=== PATIENT | female | born 1985 | race Caucasian/White ===

== ENCOUNTER 2018-10-10 16:11 | Emergency (ER) | payer SELFPAY ==
[2018-10-10 16:27] VITALS: BP 188/116; PULSE 98; O2SAT 100
[2018-10-10] MEDS ORDERED: DELTASONE 20 MG PO ONE (16:36)
[2018-10-10] MEDS ORDERED: DELTASONE 20 MG ONE (16:40)
--- NOTE | 2018-10-10 16:41 | ERPHSYRPT ---
- History of Present Illness Time Seen by Provider: 10/10/18 16:30 Source: patient Exam Limitations: clinical condition Patient Subjective Stated Complaint: pt here for rash to arms, back and legs since yesterday, she was exposed to posion thaddeus Triage Nursing Assessment: pt alert, walke in, resp easy. skin w/d/p with rash to aarms, legs, and back Physician History: PATIENT EXPOSED TO POISON THADDEUS YESTERDAY HAS GENERALIZED RASH AND ITCHING SINCE YESTERDAY. DENIES DIFFICULTY BREATHING OR SWALLOWING. Timing/Duration: yesterday Quality: burning, itchy Severity: moderate Location: generalized Possible Causes: poison thaddeus Associated Symptoms: denies symptoms Allergies/Adverse Reactions: amoxicillin Allergy (Verified 10/10/18 16:28) Penicillins Allergy (Verified 10/10/18 16:28) Home Medications: Levothyroxine Sodium 100 Mcg [Synthroid 100 Mcg] 100 mcg DAILY 10/10/18 [ History] Hx Influenza Vaccination/Date Given: Yes Hx Pneumococcal Vaccination/Date Given: No Immunizations Up to Date: Yes - Review of Systems Constitutional: No Fever, No Chills Eyes: No Symptoms Ears, Nose, & Throat: No Symptoms Respiratory: No Symptoms, No Cough, No Dyspnea Cardiac: No Symptoms, No Chest Pain, No Edema, No Syncope Abdominal/Gastrointestinal: No Symptoms, No Abdominal Pain, No Nausea, No Vomiting, No Diarrhea Genitourinary Symptoms: No Symptoms, No Dysuria Musculoskeletal: No Symptoms, No Back Pain, No Neck Pain Skin: Rash, Skin Lesions Neurological: No Dizziness, No Focal Weakness, No Sensory Changes Psychological: No Symptoms Endocrine: No Symptoms All Other Systems: Reviewed and Negative - Past Medical History Pertinent Past Medical History: Yes Endocrine Medical History: Hypothyroidism - Past Surgical History Past Surgical History: Yes Female Surgical History: Section, Tubal Ligation - Social History Smoking Status: Current every day smoker Exposure to second hand smoke: Yes Drug Use: none Patient Lives Alone: No - Female History Hx Last Menstrual Period: week ago Hx Now: No - Nursing Vital Signs Nursing Vital Signs: Initial Vital Signs Temperature 98 F 10/10/18 16:20 Pulse Rate 98 H 10/10/18 16:20 Respiratory Rate 18 10/10/18 16:20 Blood Pressure 188/116 10/10/18 16:20 O2 Sat by Pulse Oximetry 100 10/10/18 16:20 Pain Scale Pain Intensity 0 - Physical Exam General Appearance: mild distress Eye Exam: PERRL/EOMI Ears, Nose, Throat Exam: normal ENT inspection Neck Exam: normal inspection Respiratory Exam: normal breath sounds Cardiovascular Exam: regular rate/rhythm, normal heart sounds Gastrointestinal/Abdomen Exam: soft, normal bowel sounds Back Exam: normal inspection Extremity Exam: normal inspection, normal range of motion Neurologic Exam: alert, oriented x 3, cooperative, signs cleaner II-XII nml as tested Skin Exam: other (GENERALIZED ERYTHEMATOUS PATCHY VESICULAR LESIONS OVER EXTREMITITS CHEST ABDOMEN AND BACK) SpO2 Interpretation: normal SpO2: 100 Ordered Tests: Medication Summary Discontinued Medications Generic Name Dose Route Start Last Admin Trade Name Freq PRN Reason Stop Dose Admin Prednisone 60 mg 10/10/18 16:36 10/10/18 16:40 Deltasone 20 Mg PO 10/10/18 16:37 60 mg STAT ONE Administration Prednisone Confirm 10/10/18 16:40 Deltasone 20 Mg Administered 10/10/18 16:41 Dose 60 mg .ROUTE .STK-MED ONE - Progress Progress Note: 10/10/18 16:43 ORAL PREDNISONE 60MG, UNABLE TO GIVE IM BENADRYL 50MG, 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 Counseled pt/family regarding: diagnosis, need for follow-up - Departure Departure Disposition: Home Clinical Impression: CONTACT DERMATITIS Condition: Stable Critical Care Time: No Referrals: GERRI SIMON Jr., MD [Primary Care Provider] - Additional Instructions: TAKE OVER THE COUNTR BENADRYL 50MG EVERY 4 HOURS NEEDED FOR ITCHING. PREDNISONE 20MG, 2 TABLETS DAILY FOR 4 Days. APPLY OVER THE COUNTER HYDROCORTISONE CREAM TWICE DAILY FOR 1 WEEK. RETURN Prescriptions: Prednisone 20 mg [Deltasone 20 mg] 2 tab PO DAILY #8 tablet
== END 2018-10-10 17:17 | disposition home or self-care (01) ==
LOC: ED 16:11
DX: L25.9 Unspecified contact dermatitis, unspecified cause (principal)
CPT/HCPCS: 99283; A9270-GY